=== PATIENT | male | born 1980 | race Caucasian/White ===

== ENCOUNTER → 2016-06-18 | Outpatient (CLI) | payer OTHER ==
--- NOTE | 2016-06-18 11:19 | RADIOLOGY REPORT PS360 ---
ELBOW-RT-3 VIEWS HISTORY: TENDERNESS,SWELLING ORDERING PHYSICIAN: Kevin Garcia MD PATIENT AGE: 35 years COMPARISON: None FINDINGS: BONY STRUCTURES: No fracture or dislocation. No lytic or blastic change. Normal mineralization. SOFT TISSUES: Prominent soft tissue swelling is present at the olecranon region consistent with olecranon bursitis JOINT SPACE: Well-preserved. No significant arthritic changes evident. IMPRESSION: Olecranon bursitis
--- NOTE | 2016-06-18 12:21 | RADIOLOGY REPORT PS360 ---
US EXTREMITIES RT LIMITED CLINICAL INDICATION: TENDERNESS,SWELLING MASS, right elbow pain and swelling ORDERING PHYSICIAN: Kevin Garcia MD PATIENT AGE: 35 years COMPARISON: None FINDINGS: There is a complex septated fluid collection along the posterior aspect of the elbow at the olecranon region measuring approximately 3.6 x 2.8 x 2.5 cm. No obvious loose bodies apparent. IMPRESSION: Complex septated fluid collection along the posterior aspect of the elbow consistent with olecranon bursitis. Ultrasound cannot exclude superimposed infection. Please correlate clinically
== END ==
LOC: RAD 10:10
DX: R22.31 Localized swelling, mass and lump, right upper limb (principal)

== ENCOUNTER → 2016-10-04 | Outpatient (CLI) | payer OTHER ==
[2016-10-04 10:41] LABS: HEMOGLOBIN 15.8 g/dL (14.1-18.0); LYMPH # 2.1 K/mm3 (0.7-4.5); LYMPH % 27.2 % (10-50)
[2016-10-04 11:29] LABS: BUN 15 mg/dL (7-18)
[2016-10-04 11:30] LABS: GFR (ESTIMATED) 96 ML/MIN (>60)
== END ==
LOC: LAB 10:18
PROVIDERS: Surgery
DX: L72.3 Sebaceous cyst (principal); Z01.812 Encounter for preprocedural laboratory examination